=== PATIENT | male | born 1950 | race Two or more races ===

== ENCOUNTER 2019-12-05 11:23 | Outpatient (CLI) | payer OTHER | END 2019-12-05 11:29 | disposition home or self-care (01) | LOC: RAD 11:23 | DX: M25.522 Pain in left elbow (principal) ==

== ENCOUNTER 2023-11-07 08:14 | Emergency (ER) | payer OTHER ==
[~2023-11-07] VITALS: Ht 165.1 cm; Wt 81.6 kg
[2023-11-07] MEDS ORDERED: ZESTRIL40 M1 (08:27)
[2023-11-07] MEDS ORDERED: CRESTOR20 MG PO (08:27)
[2023-11-07] MEDS ORDERED: AZOR 5-40 MG T1 EACH (08:27)
[2023-11-07] MEDS ORDERED: GLUMETZA500 MG (08:28)
[2023-11-07] MEDS ORDERED: XOPENEX CO1.25 MG/0. (08:29)
[2023-11-07] MEDS ORDERED: WIXELA 250-501 EACH IH (08:29)
[2023-11-07] MEDS ORDERED: ZETIA10 MG (08:30)
== END 2023-11-07 10:04 | disposition home or self-care (01) ==
LOC: ER 08:16
DX: S82.035A Nondisplaced transverse fracture of left patella, initial encounter for closed fracture (principal); Z88.0 Allergy status to penicillin; W18.39XA Other fall on same level, initial encounter; Y93.89 Activity, other specified; Y92.018 Other place in single-family (private) house as the place of occurrence of the external cause

== ENCOUNTER 2023-11-14 12:16 | Outpatient (CLI) | payer OTHER ==
[~2023-11-14 12:16] MED LIST: AZOR 5-40 MG T1 EACH; CRESTOR20 MG PO; GLUMETZA500 MG; WIXELA 250-501 EACH IH; XOPENEX CO1.25 MG/0.; ZESTRIL40 M1; ZETIA10 MG
== END 2023-11-14 12:20 | disposition home or self-care (01) ==
LOC: RAD 12:16
PROVIDERS: ATTEND Orthopaedic Surgery
DX: S82.035A Nondisplaced transverse fracture of left patella, initial encounter for closed fracture (principal)

== ENCOUNTER 2023-11-22 05:06 | Day surgery (SDC) | payer OTHER ==
[2023-11-22] MEDS ORDERED: CEFAZOLIN SODIUM 1,000 MG VIAL ONE (07:12)
[2023-11-22] MEDS ORDERED: BUPIVACAINE HCL/PF 0.5% 30ML ML ONE (07:12)
[2023-11-22] MEDS ORDERED: BUPIVACAINE HCL/PF 0.5% 30ML ML IJ SCH (08:45)
[2023-11-22] MEDS ORDERED: CEFAZOLIN SODIUM 1,000 MG VIAL IV SCH (08:45)
[2023-11-22] MEDS ORDERED: ISOPROPYL ALCOHOL 30 ML OUNCE TOP SCH (08:45)
[2023-11-22] MEDS ORDERED: ENALAPRILAT DIHYDRATE 1.25 MG/ML VIAL IV ONE (10:52)
[2023-11-22] MEDS ORDERED: hydrALAZINE HCL 20 MG VIAL ONE (11:08)
== END 2023-11-22 12:40 | disposition home or self-care (01) ==
LOC: CIR.AMB 05:06
PROVIDERS: ATTEND Orthopaedic Surgery
DX: S82.035A Nondisplaced transverse fracture of left patella, initial encounter for closed fracture (principal); M17.12 Unilateral primary osteoarthritis, left knee; S76.112A Strain of left quadriceps muscle, fascia and tendon, initial encounter; M65.862 Other synovitis and tenosynovitis, left lower leg; Z20.822 Contact with and (suspected) exposure to COVID-19; Z88.0 Allergy status to penicillin

== ENCOUNTER 2023-12-22 14:43 | Outpatient (CLI) | payer OTHER | END 2023-12-22 14:47 | disposition home or self-care (01) | LOC: RAD 14:43 | PROVIDERS: ATTEND Orthopaedic Surgery | DX: S82.035D Nondisplaced transverse fracture of left patella, subsequent encounter for closed fracture with routine healing (principal) ==

== ENCOUNTER → 2024-07-12 11:25 | Outpatient (CLI) | payer OTHER | END | disposition home or self-care (01) | LOC: LAB 11:25 | PROVIDERS: ATTEND Orthopaedic Surgery | DX: E55.9 Vitamin D deficiency, unspecified (principal); M85.9 Disorder of bone density and structure, unspecified; E56.1 Deficiency of vitamin K ==